=== PATIENT | female | born 1940 | race Caucasian/White ===

== ENCOUNTER 2018-02-22 10:01 | Day surgery (SDC) | payer MEDICARE ==
[2018-02-21 14:57] LABS: PARTIAL THROMBOPLASTIN TIME 26 SECONDS (22-32); PROTHROMBIN TIME 10.6 SECONDS (9.0-12.0)
[2018-02-21 15:00] LABS: BASOPHILS % (AUTO) 0.6 % (0-1); EOSINOPHILS # (AUTO) 0.1 X10'3 (0-0.9); EOSINOPHILS % (AUTO) 2.4 % (0-6); HEMATOCRIT 42.8 % (35.0-45.0); HEMOGLOBIN 14.4 g/dl (12.0-16.0); LYMPHOCYTES # (AUTO) 1.8 X10'3 (1.1-4.8); LYMPHOCYTES % (AUTO) 29.9 % (21-51); MEAN CORPUSCULAR HGB CONC 33.7 % (33.0-36.5); MEAN CORPUSCULAR VOLUME 92.1 FL (78-98); MEAN PLATELET VOLUME 8.7 FL (7.4-10.4); MONOCYTES # (AUTO) 0.5 X10'3 (0-0.9); MONOCYTES % (AUTO) 8.8 % (2-12); NEUTROPHILS # (AUTO) 3.4 X10'3 (1.8-7.7); NEUTROPHILS % (AUTO) 58.3 % (42-75); PLATELET COUNT 188 X10'3 (140-440); RED BLOOD COUNT 4.65 X10'6 (4.20-5.60); WHITE BLOOD COUNT 5.9 X10'3 (4.5-11.0)
[2018-02-21 15:13] LABS: ALBUMIN 3.9 G/DL (3.4-5.0); ANION GAP 8 (8-16); BLOOD UREA NITROGEN 11 MG/DL (7-18); BUN/CREATININE RATIO 13.9 (6.6-38.0); CALCIUM 8.8 MG/DL (8.5-10.1); CHLORIDE 99 MMOL/L (99-107); CREATININE 0.79 MG/DL (0.40-0.90); GLUCOSE 88 MG/DL (70-104); SODIUM 136 MMOL/L (135-145); TOTAL CARBON DIOXIDE 28.7 MMOL/L (24-32); eGFR 70 ML/MIN
[~2018-02-22] VITALS: Ht 170.2 cm; Wt 70.5 kg
[2018-02-22] VITALS (10 sets, daily range): BP systolic 101–147; BP diastolic 50–82
[2018-02-22] MEDS ORDERED: normal saline 1000ml 1,000 ML IV SCH (11:25)
[2018-02-22] MEDS ORDERED: diphenhydrAMINE 25mg capsule PO PRN (11:25)
[2018-02-22] MEDS ORDERED: LORazepam 0.5 MG tablet PO PRN (11:25)
[2018-02-22] MEDS ORDERED: LIDOcaine/PRILOcaine 5gm cream TP ONE (11:50)
[2018-02-22] MEDS ORDERED: iohexol 350 MG/ML 50ML vial IV ONE (11:56)
[2018-02-22] MEDS ORDERED: midazolam 2 mg/2 ml injection ONE (11:56)
[2018-02-22] MEDS ORDERED: LIDOcaine 1% (10mg/ml)w/preservative injection 20ml MDV ONE (11:56)
[2018-02-22] MEDS ORDERED: iohexol 350MG/ML 100ml bottle IV ONE (11:56)
[2018-02-22] MEDS ORDERED: fentaNYL/PF 50MCG/1 ML 2ML syringe ONE (11:56)
[2018-02-22] MEDS ORDERED: heparin 1,000unit/ml 10ml vial 10 ML ONE (11:56)
[2018-02-22] MEDS ORDERED: verapamil 2.5 mg/ml inj IV ONE (11:56)
[2018-02-22] MEDS ORDERED: nitroGLYCERIN-Tridil 50MG/D5W 250 ML IV ONE (11:56)
[2018-02-22] MEDS ORDERED: LEVO75TA PO (12:13)
[2018-02-22] MEDS ORDERED: ALEN70TA60 PO (12:13)
[2018-02-22] MEDS ORDERED: MUPI22OI30 TOP (12:13)
[2018-02-22] MEDS ORDERED: ESTRADIOL PATCH TOP (12:13)
[2018-02-22] MEDS ORDERED: DORZ10DR10 LEFTEYE (12:13)
[2018-02-22] MEDS ORDERED: LATA2.5D2 RIGHTEYE (12:13)
[2018-02-22] MEDS ORDERED: METO-467 PO (12:13)
[2018-02-22 13:47] LABS: ISTAT HGB ART 13.3 g/dl (12.0-16.0); ISTAT Hct ART 39 %PCV (35-48); ISTAT O2 SATURATION ARTERIAL 94 % (95-98); ISTAT SOURCE ART
[2018-02-22 13:47] LABS: ISTAT Hct MIX 38 %PCV (35-48); ISTAT O2 SATURATION MIX VENOUS 62 % (60-80); ISTAT SOURCE MIX
== END 2018-02-22 18:00 | disposition home or self-care (01) ==
LOC: SSTAY O 10:01
PROVIDERS: ATTEND Internal Medicine Cardiovascular Disease
DX: I25.119 Atherosclerotic heart disease of native coronary artery with unspecified angina pectoris (principal); I34.1 Nonrheumatic mitral (valve) prolapse; G47.30 Sleep apnea, unspecified; Z86.73 Personal history of transient ischemic attack (TIA), and cerebral infarction without residual deficits; Z79.899 Other long term (current) drug therapy; Z98.890 Other specified postprocedural states
CPT/HCPCS: 36415; 80048; 82803; 85014; 85025; 85610; 85730; 93005; 93460; 99152; 99153; A6257; J1644; J2001; J2250; J3010; J7030; Q9967; A4620; C1769; J3490

== ENCOUNTER 2022-06-28 12:34 | Day surgery (SDC) | payer MEDICARE ==
[2022-06-28] VITALS (7 sets, daily range): BP systolic 151–179; BP diastolic 72–140
[~2022-06-28] VITALS: Ht 170.2 cm; Wt 71.9 kg
[~2022-06-28 12:34] MED LIST: ALEN70TA60 PO; DORZ10DR10 LEFTEYE; ESTRADIOL PATCH TOP; LATA2.5D14 RIGHTEYE; LEVO75TA PO; METO-467 PO; MUPI22OI30 TOP
[2022-06-28] MEDS ORDERED: normal saline 1000ml 1,000 ML IV SCH (13:20)
[2022-06-28] MEDS ORDERED: fentaNYL/PF 50MCG/1 ML 2ML syringe IV ONE (13:20)
[2022-06-28] MEDS ORDERED: MIDAZolam 1mg/ml 10ml vial IV ONE (13:20)
[2022-06-28] MEDS ORDERED: FAMO40TA7 PO (13:30)
[2022-06-28] MEDS ORDERED: AMLO5TAB16 PO (13:30)
[2022-06-28] MEDS ORDERED: APIX5TAB3 PO (13:30)
--- NOTE | 2022-06-28 13:30 | NUR ---
Patient requesting to not receive sedation fort he procedure; Spoke with Dr. Wellington Arthur and he is aware
[2022-06-28] MEDS ORDERED: TRIA10.8 BOTHNARES (13:35)
[2022-06-28] MEDS ORDERED: LORA-512 PO (13:35)
[2022-06-28] MEDS ORDERED: [UNRECOGNIZED DRUG - OTHER] (13:35)
[2022-06-28] MEDS ORDERED: VITA-268 PO (13:52)
[2022-06-28] MEDS ORDERED: MULT-381 PO (13:52)
[2022-06-28] MEDS ORDERED: ACET-1015 PO (13:52)
[2022-06-28] MEDS ORDERED: VOLTAREN (13:52)
[2022-06-28] MEDS ORDERED: OLIVE LEAF EXTRACT (13:52)
== END 2022-06-28 14:30 | disposition home or self-care (01) ==
LOC: SSTAY O 12:34 → EDSTATUS 16:30
PROVIDERS: ATTEND Student in an Organized Health Care Education/Training Program
DX: I48.0 Paroxysmal atrial fibrillation (principal); I08.0 Rheumatic disorders of both mitral and aortic valves; I10 Essential (primary) hypertension; E03.9 Hypothyroidism, unspecified; Z86.73 Personal history of transient ischemic attack (TIA), and cerebral infarction without residual deficits; Z95.0 Presence of cardiac pacemaker; Z79.899 Other long term (current) drug therapy; Z79.01 Long term (current) use of anticoagulants; Z88.8 Allergy status to other drugs, medicaments and biological substances; Z91.011 Allergy to milk products; Z88.5 Allergy status to narcotic agent; Z91.018 Allergy to other foods; Z91.09 Other allergy status, other than to drugs and biological substances
CPT/HCPCS: 93312; 93325; J7030; A4620

== ENCOUNTER 2022-08-18 08:30 | Inpatient (IN) | payer MEDICARE ==
[2022-08-10 11:24] LABS: EOSINOPHILS # (AUTO) 0.1 X10'3 (0-0.9); MONOCYTES # (AUTO) 0.6 X10'3 (0-0.9)
[2022-08-10 11:26] LABS: CLARITY,URINE CLEAR (Clear); COLOR,URINE YELLOW (Yellow); GLUCOSE, URINE NEGATIVE (Neg); KETONES,URINE NEGATIVE (Neg); LEUKOCYTE ESTERASE ,URINE NEGATIVE (Neg); NITRITES, URINE NEGATIVE (Neg); OCCULT BLOOD,URINE NEGATIVE (Neg); PH,URINE 5.5 (4.8-8.0); PROTEIN,URINE NEGATIVE (Neg); UROBILINOGEN,URINE 0.2 E.U/dL (0.2-1.0)
[2022-08-10 11:27] LABS: BASOPHILS % (AUTO) 0.9 % (0-1); EOSINOPHILS % (AUTO) 1.5 % (0-6); LYMPHOCYTES # (AUTO) 1.6 X10'3 (1.1-4.8); LYMPHOCYTES % (AUTO) 29.9 % (21-51); MEAN CORPUSCULAR HEMOGLOBIN 31.2 PG (27.0-31.0); MEAN CORPUSCULAR HGB CONC 33.1 g/dL (33.0-36.5); MEAN CORPUSCULAR VOLUME 94.4 FL (78-98); MEAN PLATELET VOLUME 7.5 FL (7.4-10.4); MONOCYTES % (AUTO) 10.8 % (2-12); NEUTROPHILS # (AUTO) 3.1 X10'3 (1.8-7.7); NEUTROPHILS % (AUTO) 56.9 % (42-75); PRE OP HEMATOCRIT 42.5 % (35.0-45.0); PRE OP PLATELET COUNT 196 X10'3 (140-440); RED CELL DISTRIBUTION WIDTH 13.9 % (11.5-14.5)
[2022-08-10 11:27] LABS: UA COLLECTION TYPE CLN CATCH MIDSTREAM
[2022-08-10 11:36] LABS: PRE OP PROTIME 11.2 SECONDS (9.0-12.0)
[2022-08-10 11:52] LABS: ALBUMIN 3.7 G/DL (3.4-5.0); ALBUMIN/GLOBULIN RATIO 1.2 (1.1-1.5); ALKALINE PHOSPHATASE 46 IU/L (46-116); BLOOD UREA NITROGEN 13 MG/DL (7-18); BUN/CREATININE RATIO 15.5 (10.0-20.0); CALCIUM 8.7 MG/DL (8.5-10.1); CHLORIDE 103 MMOL/L (99-107); CREATININE 0.84 MG/DL (0.40-0.90); PRE OP ALT 34 U/L (30-65); PRE OP ANION GAP 5 (8-16); PRE OP AST 28 U/L (10-37); PRE OP BILIRUB, TOTAL 0.5 MG/DL (0.0-1.0); PRE OP GLUCOSE 91 MG/DL (70-104); PRE OP SODIUM 137 MMOL/L (135-145); TOTAL CARBON DIOXIDE 29.4 MMOL/L (24-32); TOTAL PROTEIN 6.8 G/DL (6.4-8.2); eGFR 65 ML/MIN
[~2022-08-18] VITALS: Ht 170.2 cm; Wt 69.2 kg
[2022-08-18] VITALS (23 sets, daily range): BP systolic 111–174; BP diastolic 55–80
[~2022-08-18 08:30] MED LIST changes: +ACET-1015 PO; +AMLO5TAB16 PO; +APIX5TAB3 PO; -ESTRADIOL PATCH TOP; +FAMO40TA7 PO; +FLUT16SP2 BOTHNARES; +LORA-512 PO; -METO-467 PO; +MULT-381 PO; -MUPI22OI30 TOP; +OLIVE LEAF EXTRACT; +VITA-268 PO; +VOLTAREN; +[UNRECOGNIZED DRUG - OTHER]; +cefazolin 2gm/D5W 100mL 100 ML IV ONE; +famotidine 20mg tablet PO ONE; +ondansetron/PF 4mg/2ml inj IV PRN; +protamine sulfate 10mg/ml inj. ONE; +ringers solution, lacted 1,000 ML IV SCH; +vancomycin 1,500 MG in NS 300ml IV soln IV ONE
[2022-08-18] MEDS ORDERED: labetalol 20mg/4ml (5mg/ml) syringe IV PRN ×2 (09:15→11:55)
[2022-08-18] MEDS ORDERED: ondansetron/PF 4mg/2ml inj IV PRN ×2 (09:15→11:55)
[2022-08-18] MEDS ORDERED: ringers solution, lacted 1,000 ML IV SCH (09:15)
[2022-08-18] MEDS ORDERED: fentaNYL/PF 50MCG/1 ML 2ML syringe IV PRN ×2 (09:15)
[2022-08-18] MEDS ORDERED: LISI10TA27 PO (09:19)
[2022-08-18] MEDS ORDERED: midazolam 1 mg/ML 2ml injection ONE (10:10)
[2022-08-18] MEDS ORDERED: fentaNYL/PF 50MCG/1 ML 2ML syringe ONE (10:10)
[2022-08-18] MEDS ORDERED: non-formulary drug (Alendronate Sodium* (Fosamax*) 1 TABLET) PO SCH (10:20)
[2022-08-18] MEDS ORDERED: fluticasone nasal spray 16GM bottle NS PRN (10:20)
[2022-08-18] MEDS ORDERED: acetaminophen 325mg tablet PO PRN ×2 (10:20→11:55)
[2022-08-18] MEDS ORDERED: heparin 1,000 UNITS/NS 500ml 500 ML ONE (10:29)
[2022-08-18] MEDS ORDERED: neostigmine methylsulfate 1 MG/ML 10ml vial ONE (10:40)
[2022-08-18] MEDS ORDERED: sevoflurane 250ml liquid IH ONE (10:40)
[2022-08-18] MEDS ORDERED: LIDOcaine 1%/PF 5ML 10 MG/ML VIAL ONE (10:45)
[2022-08-18] MEDS ORDERED: propofol inj 20 ML IV ONE (10:45)
[2022-08-18] MEDS ORDERED: heparin 1,000unit/ml 10ml vial 10 ML ONE (10:45)
[2022-08-18] MEDS ORDERED: rocuronium 10mg/ml inj IV ONE (10:45)
[2022-08-18] MEDS ORDERED: glycopyrrolate 0.2mg/ml inj ONE (10:45)
[2022-08-18] MEDS ORDERED: labetalol 20mg/4ml (5mg/ml) syringe IV ONE (11:10)
[2022-08-18] MEDS ORDERED: hydrALAZINE 20mg/ml inj. IV ONE (11:23)
[2022-08-18] MEDS ORDERED: potassium CL 10mEq/100ml bag 100 ML IV PRN (11:55)
[2022-08-18] MEDS ORDERED: pantoprazole 40mg Tablet.DR PO PRN (11:55)
[2022-08-18] MEDS ORDERED: potassium Cl 40MEQ/1/2NS 520ml 520 ML IV PRN (11:55)
[2022-08-18] MEDS ORDERED: potassium Cl 20 mEq SR tablet PO PRN (11:55)
[2022-08-18] MEDS ORDERED: diphenhydrAMINE 25mg capsule PO PRN (11:55)
[2022-08-18] MEDS ORDERED: potassium Cl 40MEQ/270ML bag 250 ML IV PRN (11:55)
[2022-08-18] MEDS ORDERED: potassium Cl 20mEq/100mL bag 100 ML IV PRN (11:55)
[2022-08-18] MEDS ORDERED: magnesium 2GM in 50ml NS 50 ML IV PRN (11:55)
[2022-08-18] MEDS ORDERED: docusate sod 100mg capsule PO PRN (11:55)
[2022-08-18] MEDS ORDERED: proCHLORperazine 10 MG/2 ml inj IV PRN (11:55)
[2022-08-18] MEDS: normal saline 1000ml 1,000 ML IV SCH ×2 (11:55→21:12)
[2022-08-18] MEDS ORDERED: ALPRAZolam 0.25mg tablet PO PRN (11:55)
[2022-08-18] MEDS ORDERED: hydrALAZINE 20mg/ml inj. IV PRN (11:55)
[2022-08-18] MEDS ORDERED: magnesium 4gm in 100ml NS 100 ML IV PRN (11:55)
--- NOTE | 2022-08-18 12:02 | NUR ---
Received from OR via [facility] BED TO [facility], accompanied by Anesthesiologist DR MOORE and report given by Anesthesiolgist. PT PRESENTS WITH PIV 2G RIGHT WRIST, ART LINE LEFT WRIST, SPO2 98% M6L MASK, RIGHT GROIN SITE SOFT NON TENDER, RIGHT DORSALAS PEDUS PALPABLE, LR RUNNING AT 100MLS/HR, VSS. Addendum: 08/18/22 at 1634 by Vinita Christopher RN, RN Amended: Links added.
--- NOTE | 2022-08-18 13:07 | NUR ---
ART LINE REMOVED FRO RIGHT WRIST, PT TOLERATED WELL.
[2022-08-18] MEDS: sod chloride 0.9% 10ml flush syringe IV SCH (16:00)
--- NOTE | 2022-08-18 18:29 | NUR ---
Patient in room [id number]. I have received report from LEVI SPEARS and had the opportunity to ask questions and assume patient care.
[2022-08-18] MEDS ORDERED: famotidine 20mg tablet PO SCH (21:00)
[2022-08-18] MEDS ORDERED: latanoprost 0.005% 2.5ml ophthalmic drops RIGHTEYE SCH (21:00)
[2022-08-18] MEDS: dorzolamide/timolol (Cosopt) ophthalmic drops 10ml bottle LEFTEYE SCH (21:14)
[2022-08-19 02:00] VITALS: BP 115/56
[2022-08-19 06:24] LABS: BASOPHILS % (AUTO) 0.7 % (0-1); EOSINOPHILS # (AUTO) 0.1 X10'3 (0-0.9); HEMATOCRIT 36.1 % (35.0-45.0); LYMPHOCYTES # (AUTO) 1.7 X10'3 (1.1-4.8); LYMPHOCYTES % (AUTO) 24.3 % (21-51); MEAN CORPUSCULAR HEMOGLOBIN 31.7 PG (27.0-31.0); MEAN CORPUSCULAR HGB CONC 33.3 g/dL (33.0-36.5); MEAN PLATELET VOLUME 7.9 FL (7.4-10.4); MONOCYTES # (AUTO) 0.7 X10'3 (0-0.9); MONOCYTES % (AUTO) 10.5 % (2-12); NEUTROPHILS # (AUTO) 4.4 X10'3 (1.8-7.7); NEUTROPHILS % (AUTO) 63.5 % (42-75); PLATELET COUNT 156 X10'3 (140-440)
--- NOTE | 2022-08-19 06:28 | NUR ---
Problems reprioritized. Patient report given, questions answered & plan of care reviewed with LEVI SPEARS.
[2022-08-19 06:39] LABS: ALANINE AMINOTRANSFERASE 22 U/L (12-78); ALBUMIN 2.9 G/DL (3.4-5.0); ALBUMIN/GLOBULIN RATIO 1.1 (1.1-1.5); ALKALINE PHOSPHATASE 40 IU/L (46-116); ANION GAP 6 (8-16); ASPARTATE AMINO TRANSFERASE 29 U/L (10-37); BILIRUBIN,TOTAL 0.6 MG/DL (0.1-1.0); BLOOD UREA NITROGEN 14 MG/DL (7-18); BUN/CREATININE RATIO 17.7 (10.0-20.0); CALCIUM 7.8 MG/DL (8.5-10.1); CHLORIDE 103 MMOL/L (99-107); CREATININE 0.79 MG/DL (0.40-0.90); GLUCOSE 93 MG/DL (70-104); MAGNESIUM 1.9 MG/DL (1.5-2.4); POTASSIUM 3.5 MMOL/L (3.5-5.1); SODIUM 137 MMOL/L (135-145); TOTAL CARBON DIOXIDE 27.7 MMOL/L (24-32); TOTAL PROTEIN 5.5 G/DL (6.4-8.2); eGFR 70 ML/MIN
[2022-08-19 07:00] VITALS: BP 130/60
[2022-08-19] MEDS ORDERED: loratadine 10mg tablet PO SCH (08:00)
[2022-08-19] MEDS: dorzolamide/timolol (Cosopt) ophthalmic drops 10ml bottle LEFTEYE SCH (08:00)
[2022-08-19] MEDS ORDERED: levoTHYROXINE 75mcg tablet PO SCH (08:00)
[2022-08-19] MEDS ORDERED: vitamin B comp w/Vit. C tab 1 TAB TABLET PO SCH (08:00)
[2022-08-19] MEDS ORDERED: multivitamins, therapeutics tablet PO SCH (08:00)
[2022-08-19] MEDS ORDERED: lisinopril 10 MG tablet PO SCH (08:00)
[2022-08-19] MEDS: sod chloride 0.9% 10ml flush syringe IV SCH ×2 (08:30)
[2022-08-19] MEDS ORDERED: apixaban 5mg tablet PO SCH (09:45)
== END 2022-08-19 14:29 | disposition home or self-care (01) | DRG 274 ==
LOC: PAS 08:30 → PAS IN 11:59 → PCU 3S 13:55
PROVIDERS: ADMIT Student in an Organized Health Care Education/Training Program; ATTEND Student in an Organized Health Care Education/Training Program
PROC: B24BZZ4 Ultrasonography of Heart with Aorta, Transesophageal (ICD-10-PCS; 2022-08-18)
PROC: 02L73DK Occlusion of Left Atrial Appendage with Intraluminal Device, Percutaneous Approach (ICD-10-PCS; principal; 2022-08-18 10:40)
DX: I48.0 Paroxysmal atrial fibrillation (principal); Z00.6 Encounter for examination for normal comparison and control in clinical research program; I49.5 Sick sinus syndrome; E03.9 Hypothyroidism, unspecified; Z79.01 Long term (current) use of anticoagulants; Z79.83 Long term (current) use of bisphosphonates; Z86.73 Personal history of transient ischemic attack (TIA), and cerebral infarction without residual deficits; Z95.0 Presence of cardiac pacemaker
CPT/HCPCS: 33340; 36415; 71045; 71046; 76376; 76937; 80053; 81003; 82948; 83735; 83880; 84443; 85025; 85347; 85610; 85730; 86885; 86900; 86901; 86920; 87081; 93005; 93308; 93312; A4618; A6258; A6449; C1889; C1893; C1894; G0378; J0360; J0690; J1644; J2250; J2704; J2710; J2720; J3010; J3370; J3490; J7030; J7040; J7120

== ENCOUNTER 2022-09-27 11:26 | Day surgery (SDC) | payer MEDICARE ==
[~2022-09-27] VITALS: Ht 170.2 cm; Wt 69.9 kg
[2022-09-27] VITALS (11 sets, daily range): BP systolic 128–196; BP diastolic 72–107; PULSE 60–77; RESP 7–20; TEMP 97.2; O2SAT 94–99
[~2022-09-27 11:26] MED LIST changes: -AMLO5TAB16 PO; +LISI10TA27 PO; -cefazolin 2gm/D5W 100mL 100 ML IV ONE; -famotidine 20mg tablet PO ONE; -ondansetron/PF 4mg/2ml inj IV PRN; -protamine sulfate 10mg/ml inj. ONE; -ringers solution, lacted 1,000 ML IV SCH; -vancomycin 1,500 MG in NS 300ml IV soln IV ONE
[2022-09-27] MEDS ORDERED: MIDAZolam 1mg/ml 10ml vial IV ONE (11:50)
[2022-09-27] MEDS ORDERED: fentaNYL/PF 50MCG/1 ML 2ML syringe IV ONE (11:50)
[2022-09-27 12:16] LABS: BASOPHILS # (AUTO) 0.1 X10'3 (0-0.2); BASOPHILS % (AUTO) 0.8 % (0-1); EOSINOPHILS # (AUTO) 0.1 X10'3 (0-0.9); EOSINOPHILS % (AUTO) 0.9 % (0-6); HEMATOCRIT 43.9 % (35.0-45.0); HEMOGLOBIN 14.7 g/dl (12.0-16.0); LYMPHOCYTES # (AUTO) 1.5 X10'3 (1.1-4.8); LYMPHOCYTES % (AUTO) 22.3 % (21-51); MEAN CORPUSCULAR HEMOGLOBIN 31.6 PG (27.0-31.0); MEAN CORPUSCULAR HGB CONC 33.4 g/dL (33.0-36.5); MEAN CORPUSCULAR VOLUME 94.5 FL (78-98); MEAN PLATELET VOLUME 7.4 FL (7.4-10.4); MONOCYTES # (AUTO) 0.6 X10'3 (0-0.9); MONOCYTES % (AUTO) 9.5 % (2-12); NEUTROPHILS # (AUTO) 4.6 X10'3 (1.8-7.7); NEUTROPHILS % (AUTO) 66.5 % (42-75); PLATELET COUNT 207 X10'3 (140-440); RED BLOOD COUNT 4.65 X10'6 (4.20-5.60); RED CELL DISTRIBUTION WIDTH 12.8 % (11.5-14.5); WHITE BLOOD COUNT 6.8 X10'3 (4.5-11.0)
[2022-09-27 12:30] LABS: ALANINE AMINOTRANSFERASE 32 U/L (12-78); ALBUMIN 3.9 G/DL (3.4-5.0); ALBUMIN/GLOBULIN RATIO 1.1 (1.1-1.5); ALKALINE PHOSPHATASE 55 IU/L (46-116); ANION GAP 6 (8-16); ASPARTATE AMINO TRANSFERASE 33 U/L (10-37); BILIRUBIN,TOTAL 0.7 MG/DL (0.1-1.0); BLOOD UREA NITROGEN 13 MG/DL (7-18); BUN/CREATININE RATIO 16.3 (10.0-20.0); CALCIUM 9.2 MG/DL (8.5-10.1); CHLORIDE 93 MMOL/L (99-107); GLUCOSE 97 MG/DL (70-104); POTASSIUM 3.6 MMOL/L (3.5-5.1); SODIUM 131 MMOL/L (135-145); TOTAL PROTEIN 7.5 G/DL (6.4-8.2); eCRCL 52 ML/MIN; eGFR 69 ML/MIN
== END 2022-09-27 15:35 | disposition home or self-care (01) ==
LOC: SSTAY O 11:26 → EDSTATUS 13:30 → SSTAY O 15:35
PROVIDERS: ATTEND Student in an Organized Health Care Education/Training Program
DX: Z45.09 Encounter for adjustment and management of other cardiac device (principal); I48.91 Unspecified atrial fibrillation; I08.0 Rheumatic disorders of both mitral and aortic valves; I10 Essential (primary) hypertension; Z95.0 Presence of cardiac pacemaker; Z79.899 Other long term (current) drug therapy; Z86.73 Personal history of transient ischemic attack (TIA), and cerebral infarction without residual deficits
CPT/HCPCS: 36415; 80053; 85025; 85610; 93312; 93325; 94760; J2250; J3010; J7030; A4620